=== PATIENT | male | born 1990 | race Caucasian/White ===

== ENCOUNTER 2017-08-18 15:32 | Emergency (ER) | payer MEDICARE, OTHER ==
[2017-08-18 15:51] VITALS: BP 128/68; PULSE 90; RESP 17; TEMP 98.1
--- NOTE | 2017-08-18 16:15 | XR ---
EXAMINATION TYPE: XR foot complete RT DATE OF EXAM: 08/18/2017 CLINICAL HISTORY: pain TECHNIQUE: Frontal, lateral and oblique images of the right foot are obtained. COMPARISON: None. FINDINGS: There is no acute fracture/dislocation evident. The joint spaces appear within normal juárez its. The overlying soft tissue appears unremarkable. IMPRESSION: There is no acute fracture or dislocation. ICD 10 NO FRACTURE, INITIAL EVALUATION
--- NOTE | 2017-08-18 16:18 | ED ---
Lower Extremity Injury HPI - General Chief Complaint: Extremity Injury, Lower Stated Complaint: foot pain Time Seen by Provider: 08/18/17 15:51 Source: patient, RN notes reviewed Mode of arrival: ambulatory Limitations: no limitations - History of Present Illness Initial Comments: This is a 26-year-old male who presents to the emergency department with chief complaint of right foot pain. Patient states on August 07 he did a lot of walking. He states that when he returned home that evening the lateral aspect of his right foot felt very sore. He states that since that time the pain has not improved. He denies any falls, specific injuries or trauma. Denies any other areas of pain. Denies fever, chills, chest pain, shortness of breath, abdominal pain, nausea or vomiting, constipation or diarrhea, dysuria or hematuria, numbness or tingling, headache or vision changes. - Related Data Previous Rx's Medication Instructions Recorded Ibuprofen [Motrin] 800 mg PO Q6HR PRN #30 tab 01/05/14 Allergies Allergy/AdvReac Type Severity Reaction Status Date / Time Sulfa (Sulfonamide Allergy Dyspnea Verified 08/18/17 15:57 Antibiotics) Review of Systems ROS Statement: Those systems with pertinent positive or pertinent negative responses have been documented in the HPI. ROS Other: All systems not noted in ROS Statement are negative. Past Medical History Past Medical History: No Reported History History of Any Multi-Drug Resistant Organisms: None Reported Additional Past Surgical History / Comment(s): eye surgery Past Psychological History: No Psychological Hx Reported Smoking Status: Current every day smoker Past Alcohol Use History: Occasional Past Drug Use History: Marijuana General Exam - General Exam Comments Initial Comments: General: Awake and alert, well-developed; in no apparent distress. HEENT: Head atraumatic, normocephalic. Pupils are equal, round and reactive to light. Extraocular movements intact. Oropharynx moist without erythema or exudate. Neck: Supple. Normal ROM. Cardiovascular: Regular rate and rhythm. No murmurs, rubs or gallops. Chest symmetrical. Respiratory: Lungs clear to auscultation bilaterally. No wheezes, rales or rhonchi. Normal respiratory effort with no use of accessory muscles. Musculoskeletal: Normal range of motion of the right ankle and foot. There is mild soft tissue swelling and mild tenderness lateral proximal right foot. Sensation is intact. Pedal pulses are 2+ equal and palpable bilaterally. Skin: [place], warm and dry without rashes or lesions. Neurological: Alert and oriented x3. CN II-XII grossly intact. Speech is fluent and answers are appropriate. No focal neuro deficits. Psychiatric: Normal mood and affect. No overt signs of depression or anxiety noted. Limitations: no limitations Course Vital Signs 08/18/17 15:47 Temperature 98.1 F Pulse Rate 90 Respiratory 17 Rate Blood Pressure 128/68 O2 Sat by Pulse 98 Oximetry Medical Decision Making - Medical Decision Making This is a 26-year-old male who presents to the emergency department with chief complaint of right foot pain. X-ray was obtained and revealed no acute abnormalities. Recommended rest, ice, elevation. Patient will be discharged home at this time. He is in agreement and voices understanding. All questions were answered. - Radiology Data Radiology results: report reviewed X-ray right foot impression: There is no acute fracture or dislocation. Disposition Clinical Impression: Foot pain, right Disposition: HOME SELF-CARE Condition: Good Instructions: Foot Sprain (ED) Additional Instructions: Please rest, ice, elevate and take ibuprofen or Tylenol as needed. Please follow up with primary care provider within 1-2 days. Return to emergency department if symptoms should worsen or any concerns arise. Is patient prescribed a controlled substance at d/c from ED?: No Referrals: Reagan Naik MD [Primary Care Provider] - 1-2 days Time of Disposition: 16:35
== END 2017-08-18 16:38 | disposition home or self-care (01) ==
LOC: EC 15:32
DX: M79.671 Pain in right foot (principal); F17.200 Nicotine dependence, unspecified, uncomplicated; Z88.2 Allergy status to sulfonamides
CPT/HCPCS: 99283

== ENCOUNTER 2017-11-06 14:59 | Inpatient (IN) | payer MEDICARE, OTHER ==
--- NOTE | 2017-11-06 16:57 | ED ---
General Adult HPI <Shahid Carl - Last Filed: 11/06/17 20:11> - General Source: patient, RN notes reviewed Mode of arrival: ambulatory Limitations: no limitations <Les Car - Last Filed: 11/07/17 00:26> - General Chief complaint: Back Pain/Injury Stated complaint: Back pain Time Seen by Provider: 11/06/17 16:11 - History of Present Illness Initial comments: 26-year-old male presents to the emergency department for a chief complaint of right upper back pain 2 days. Patient states he woke up with the pain yesterday. Patient states it radiates around his right side ribs. Patient denies any chest pain or shortness of breath. Patient admits to mild cough over the past few days. Patient denies any pain in the shoulder or neck. No headaches. Patient has not taken anything for pain. Patient has no other complaints at this time including abdominal pain, nausea or vomiting, headache, or visual changes. (Les Car) - Related Data Previous Rx's Medication Instructions Recorded Ibuprofen [Motrin] 800 mg PO Q6HR PRN #30 tab 01/05/14 Allergies Allergy/AdvReac Type Severity Reaction Status Date / Time Sulfa (Sulfonamide Allergy Dyspnea Verified 11/06/17 21:27 Antibiotics) Review of Systems ROS Other: All systems not noted in ROS Statement are negative. <Shahid Carl - Last Filed: 11/06/17 20:11> ROS Other: All systems not noted in ROS Statement are negative. <Les Car - Last Filed: 11/07/17 00:26> ROS Statement: Those systems with pertinent positive or pertinent negative responses have been documented in the HPI. Past Medical History Past Medical History: No Reported History History of Any Multi-Drug Resistant Organisms: None Reported Past Surgical History: No Surgical Hx Reported Additional Past Surgical History / Comment(s): eye surgery Past Psychological History: No Psychological Hx Reported Smoking Status: Current every day smoker Past Alcohol Use History: Occasional Past Drug Use History: Marijuana <Les Car - Last Filed: 11/07/17 00:26> General Exam Limitations: no limitations General appearance: alert, in no apparent distress Head exam: Present: atraumatic, normocephalic, normal inspection Eye exam: Present: normal appearance. Absent: scleral icterus, conjunctival injection ENT exam: Present: normal exam, mucous membranes moist Neck exam: Present: normal inspection, full ROM. Absent: tenderness, meningismus, lymphadenopathy Respiratory exam: Present: normal lung sounds bilaterally. Absent: respiratory distress, wheezes, rales, rhonchi, stridor Cardiovascular Exam: Present: regular rate, normal rhythm, normal heart sounds. Absent: systolic murmur, diastolic murmur, rubs, gallop, clicks Extremities exam: Present: full ROM (Full range of motion of right shoulder including flexion and abduction and extension. No pain with ROM. ), normal capillary refill (cap refill < 2 seconds, radial pulse 2+ in RUE.). Absent: tenderness (No tenderness to the right shoulder joint.), joint swelling (no swelling in shoulder or shoulder blade) Back exam: Present: full ROM (Full range of motion of lumbar spine including flexion and extension.), tenderness (Tenderness to trapezius muscle on the right side under the right scapula. ). Absent: CVA tenderness (R), CVA tenderness (L), vertebral tenderness (No cervical, thoracic, or lumbar spine tenderness) <Les Car P - Last Filed: 11/07/17 00:26> Vital Signs 11/06/17 11/06/17 11/06/17 15:31 18:29 19:32 Temperature 98.3 F 98.3 F Pulse Rate 59 L 65 57 L Respiratory 18 18 20 Rate Blood Pressure 123/77 132/89 130/74 O2 Sat by Pulse 100 100 99 Oximetry 11/06/17 11/06/17 11/06/17 19:33 20:28 21:32 Temperature 97.9 F Pulse Rate 50 L 54 L Respiratory 18 18 Rate Blood Pressure 121/76 141/94 O2 Sat by Pulse 100 100 100 Oximetry Medical Decision Making <Shahid Carl B - Last Filed: 11/06/17 20:11> - Lab Data Result diagrams: 11/06/17 20:23 11/06/17 20:23 <Les Car P - Last Filed: 11/07/17 00:26> - Medical Decision Making 26-year-old male presents to the emergency department for a chief complaint of right upper back pain 2 days. Patient woke up with the pain. It has been radiating around the right side of his upper ribs. No fevers or chills at home. Patient has had a slight cough. No blood coughed up. No shortness of breath or chest pain. On exam patient lungs are clear to auscultation bilaterally. Full range motion in the right shoulder. Patient has tenderness over trapezius muscle right side subscapular. X-ray shows an approximate 50% right pneumothorax. Left lung is clear. Heart and mediastinum are normal. The trachea is deviated a few millimeters to the left. No significant tension. Thoravent was applied by Dr Carl and patient admitted to hospital. (Les Car) Disposition Is patient prescribed a controlled substance at d/c from ED?: No <Shahid Carl - Last Filed: 11/06/17 20:11> <Les Car - Last Filed: 11/07/17 00:26> Clinical Impression: Spontaneous pneumothorax Disposition: ADMITTED IP TO THIS HOSP Condition: Good
--- NOTE | 2017-11-06 17:28 | XR ---
EXAMINATION TYPE: XR chest 2V DATE OF EXAM: 11/06/2017 COMPARISON: NONE HISTORY: Left side chest pain TECHNIQUE: Frontal and lateral views of the chest are obtained. FINDINGS: There is an approximate 50% right pneumothorax. The left lung is clear. Heart and mediasti num are normal. Bony thorax is intact. The trachea is deviated a few millimeters to the left side. IMPRESSION: Large right-sided pneumothorax. No significant tension. This exam was discussed with ER physician at 5:25 PM.
[2017-11-06] MEDS ORDERED: LIDOCAINE 1%-EPI 1:100,000 30 ML VIAL SQ STA (17:55)
[2017-11-06] MEDS ORDERED: LORazepam 1 MG TAB PO STA (18:19)
[2017-11-06] MEDS ORDERED: HYDROcodone/APAP 5-325MG 1 EACH TAB PO STA (18:20)
--- NOTE | 2017-11-06 20:06 | XR ---
EXAMINATION TYPE: XR chest 2V DATE OF EXAM: 11/06/2017 COMPARISON: Today HISTORY: Pneumothorax TECHNIQUE: Frontal and lateral views of the chest are obtained. FINDINGS: There is a right chest tube over the right upper lung field. There is decrease in the righ t-sided pneumothorax. Pneumothorax is approximately 25%. Left lung is clear. There is no pleural effu charles. There are chest leads. IMPRESSION: Decrease in the right pneumothorax.
[2017-11-06] MEDS ORDERED: SODIUM CHLORIDE 0.9% 1,000 ML IV ONE (20:09)
[2017-11-06] MEDS ORDERED: SODIUM CHLORIDE 0.9% 1,000 ML IV STA (20:11)
[2017-11-06 20:36] LABS: Basophils % (A) 0 %; Eosinophils # (A) 0.2 k/uL (0-0.7); Eosinophils % (A) 4 %; HCT 40.6 % (39.0-53.0); HGB 14.1 gm/dL (13.0-17.5); Lymphocytes # (A) 1.8 k/uL (1.0-4.8); Lymphocytes % (A) 29 %; MCH 31.1 pg (25.0-35.0); MCHC 34.7 g/dL (31.0-37.0); MCV 89.5 fL (80.0-100.0); Mean Platelet Volume 6.4; Monocytes # (A) 0.3 k/uL (0-1.0); Monocytes % (A) 5 %; Neutrophils # (A) 3.9 k/uL (1.3-7.7); Neutrophils % (A) 61 %; Platelet Count 243 k/uL (150-450); RBC 4.53 m/uL (4.30-5.90); RDW 13.1 % (11.5-15.5); WBC 6.5 k/uL (3.8-10.6)
[2017-11-06 20:40] LABS: ALT 47 U/L (21-72); AST 35 U/L (17-59); Albumin 4.5 g/dL (3.5-5.0); Alkaline Phosphatase 79 U/L (38-126); Anion Gap 10 mmol/L; Blood Urea Nitrogen 14 mg/dL (9-20); Calcium 8.7 mg/dL (8.4-10.2); Carbon Dioxide 24 mmol/L (22-30); Chloride 104 mmol/L (98-107); Glucose 101 mg/dL (74-99); Magnesium 2.5 mg/dL (1.6-2.3); Potassium 4.3 mmol/L (3.5-5.1); Sodium 138 mmol/L (137-145); Total Bilirubin 0.4 mg/dL (0.2-1.3); Total Protein 6.8 g/dL (6.3-8.2)
[2017-11-06 20:51] LABS: Partial Thromboplastin Time 26.6 sec (22.0-30.0); Prothrombin Time 10.1 sec (9.0-12.0)
[2017-11-06] MEDS ORDERED: HYDROcodone/APAP 5-325MG 1 EACH TAB PO PRN (21:30)
--- NOTE | 2017-11-07 11:16 | XR ---
EXAMINATION TYPE: XR chest 2V DATE OF EXAM: 11/07/2017 HISTORY: Pneumothorax. REFERENCE: Previous study dated 11/06/2017. FINDINGS: There is a Heimlich valve in place on the right. The patient's pneumothorax appears to have resolved. The lungs are now clear. Pleural space are clear. The heart is not enlarged. IMPRESSION: RESOLUTION OF THE PATIENT'S RIGHT-SIDED PNEUMOTHORAX.
--- NOTE | 2017-11-07 12:39 | P.CNPUL ---
History of Present Illness Consult date: 11/07/17 Reason for consult: dyspnea, cough, chest pain, pneumothorax, abnormal CXR/CT Chief complaint: Shortness of breath and right-sided chest pain History of present illness: Pulmonary consult dated 11/07/2017 26-year-old male who presents to the emergency department on November 06 for complaints of right lateral chest pain and right upper back pain. His been going on for a couple of days. In addition, he complains of some shortness of breath or difficulty breathing. He states that it was difficult for him to take a deep breath. The patient wasn't doing anything at all when this developed. He wasn't lifting anything or straining. The patient does have a history of heavy tobacco use. He is a thin male. He only uses Motrin when necessary for general aches and pains. His primary physician is Dr. Naik. States that he's feeling much better now. In the emergency room, the ER physician placed a Thoravent device. The patient smokes about a pack a day. He occasionally uses marijuana and does drink occasionally. No other illicit drug use. No other significant past medical surgery. Review of Systems A 12 point review of system is positive for chest and back pain. It was right sided. It began a couple days prior to admission. In addition, he admits to not being able to take a deep breath. He felt pain when he was trying to take a deep breath. Past Medical History Past Medical History: No Reported History Additional Past Medical History / Comment(s): migraines, edendulous History of Any Multi-Drug Resistant Organisms: None Reported Past Surgical History: No Surgical Hx Reported Additional Past Surgical History / Comment(s): eye surgery Past Anesthesia/Blood Transfusion Reactions: No Reported Reaction Past Psychological History: No Psychological Hx Reported Smoking Status: Current every day smoker Past Alcohol Use History: Occasional Past Drug Use History: Marijuana - Past Family History Mother Family Medical History: No Reported History Additional Family Medical History / Comment(s): colonoscopy, eye sx Father History Unknown: Yes Medications and Allergies Home Medications Medication Instructions Recorded Confirmed Type Ibuprofen [Motrin] 800 mg PO Q6HR PRN #30 tab 01/05/14 11/06/17 Rx Allergies Allergy/AdvReac Type Severity Reaction Status Date / Time Sulfa (Sulfonamide Allergy Dyspnea Verified 07/27/18 21:27 Antibiotics) Physical Exam Osteopathic Statement: *. No significant issues noted on an osteopathic structural exam other than those noted in the History and Physical/Consult. Vitals: Vital Signs Temp Pulse Pulse Resp BP BP Pulse Ox 11/07/17 08:00 98 F 66 18 124/57 100 11/06/17 23:00 97.8 F 53 L 16 125/86 100 11/06/17 21:32 97.9 F 54 L 18 141/94 100 11/06/17 20:28 50 L 18 121/76 100 11/06/17 19:33 100 11/06/17 19:32 98.3 F 57 L 20 130/74 99 11/06/17 18:29 65 18 132/89 100 11/06/17 15:31 98.3 F 59 L 18 123/77 100 Intake and Output 11/06/17 11/07/17 11/07/17 22:59 06:59 14:59 Intake Total 1200 Balance 1200 Intake: Intake, IV Titration 800 Amount Sodium Chloride 0.9% 1, 800 000 ml @ 100 mls/hr IV . Q10H STA Rx#:[id number] Oral 400 Other: Voiding Method Toilet # Voids 2 1 Weight 46.539 kg No acute distress, oriented 3. Nasal O2 in place. HEENT examination is grossly unremarkable. Mucous membranes are moist. No oral lesions. Neck supple. Full range of motion. No adenopathy thyromegaly or neck vein distention. Cardiovascular examination reveals regular rhythm rate. S1-S2 normal. No S3 or S4. No discernible murmur noted. Lungs reveal clear breath sounds. Breath sounds are equal bilaterally. No adventitious lung sounds including wheezes rhonchi or crackles. Abdomen soft bowel sounds are heard. No masses or tenderness. Extremities are intact. No cyanosis clubbing or edema. Skin is without rash or lesion. Neurologic examination is brief but nonfocal. Results - Laboratory Findings CBC and BMP: 11/06/17 20:23 11/06/17 20:23 PT/INR, D-dimer PT 10.1 sec (9.0-12.0) 11/06/17 20:23 INR 1.0 (<1.2) 11/06/17 20:23 Abnormal lab findings: Abnormal Labs 11/06/17 20:23 Creatinine 0.60 L Glucose 101 H Phosphorus 5.0 H Magnesium 2.5 H - Diagnostic Findings Chest x-ray: report reviewed (Labs x-rays and medications are all reviewed.), image reviewed Assessment and Plan Assessment: Idiopathic spontaneous right pneumothorax in a smoker, rule out apical bleb/ cyst disease History of chronic tobacco and marijuana use No significant past medical history Plan: Plan dated 11/07/2017 The right lung is fully expanded after the insertion of the floor of vent. The patient should be counseled about the importance of smoking cessation. Since this is his first pneumothorax, conservative therapy is all that is warranted. Should he have one or more episodes, consideration might be given to a VATS procedure with apical bleb resection and mechanical pleurodesis. Cardiothoracic has been consulted. No additional recommendations are made. The patient is counseled today about the importance of all smoking cessation. Time with Patient: Greater than 30
[2017-11-07 12:41] VITALS: BMI 17.0
--- NOTE | 2017-11-07 13:15 | P.GSCN ---
History of Present Illness Consult date: 11/07/17 Reason for Consult: Right-sided pneumothorax, status post thoravent insertion by the emergency room physicians. Requesting physician: Ananth Bangura History of present illness: This is a 26-year-old with thin young male patient of Dr. Naik. He has no significant past medical history except for tobacco dependence and marijuana use. He presented to the emergency room at [facility] complaints of right upper back pain, chest pain and shortness of breath for 2 days. Associated symptoms include nonproductive cough. Chest x-ray completed in the emergency room demonstrated 50% apical and lateral pneumothorax on the right. A thoravent was placed by the emergency room physicians with complete reexpansion on this morning's chest x-ray. He denied any trauma or any history of pneumothorax in the past. Consult request was placed for Dr. Meredith for management of the thoravent. Review of Systems Negative except as noted in the HPI. Past Medical History Past Medical History: No Reported History Additional Past Medical History / Comment(s): migraines, edendulous History of Any Multi-Drug Resistant Organisms: None Reported Past Surgical History: No Surgical Hx Reported Additional Past Surgical History / Comment(s): eye surgery Past Anesthesia/Blood Transfusion Reactions: No Reported Reaction Past Psychological History: No Psychological Hx Reported Smoking Status: Current every day smoker Past Alcohol Use History: Occasional Past Drug Use History: Marijuana - Past Family History Mother Family Medical History: No Reported History Additional Family Medical History / Comment(s): colonoscopy, eye sx Father History Unknown: Yes Medications and Allergies Home Medications Medication Instructions Recorded Confirmed Type Ibuprofen [Motrin] 800 mg PO Q6HR PRN #30 tab 01/05/14 11/06/17 Rx Allergies Allergy/AdvReac Type Severity Reaction Status Date / Time Sulfa (Sulfonamide Allergy Dyspnea Verified 11/06/17 21:27 Antibiotics) Surgical - Exam Vital Signs Temp Pulse Resp BP Pulse Ox 98.3 F 59 L 18 123/77 100 11/06/17 15:31 11/06/17 15:31 11/06/17 15:31 11/06/17 15:31 11/06/17 15:31 - General well developed, well nourished, no distress, no pain - Eyes PERRL, normal ocular movement - ENT no hearing loss - Neck no masses, no bruits, trachea midline - Respiratory Lungs sounds clear bilaterally. Respirations even, nonlabored. Currently on 2 L nasal cannula with oxygen saturation 100%. Thoravent present to right anterior chest wall, no air leak present. - Cardiovascular S1, S2 present. Regular rate and rhythm, sinus bradycardia to sinus rhythm on telemetry. - Abdomen Abdomen: soft, non tender, bowel sounds - Genitourinary Deferred - Rectum Deferred - Integumentary no rash, no growths, no abnormal pigmentation - Neurologic normal coordination, normal sensation - Musculoskeletal normal gait, normal posture - Psychiatric oriented to time, oriented to person, oriented to place, speech is normal, memory intact Results - Labs 11/06/17 20:23 11/06/17 20:23 Abnormal Lab Results - Last 24 Hours (Table) 11/06/17 Range/Units 20:23 Creatinine 0.60 L (0.66-1.25) mg/dL Glucose 101 H (74-99) mg/dL Phosphorus 5.0 H (2.5-4.5) mg/dL Magnesium 2.5 H (1.6-2.3) mg/dL Diabetes panel 11/06/17 Range/Units 20:23 Sodium 138 (137-145) mmol/L Potassium 4.3 (3.5-5.1) mmol/L Chloride 104 (98-107) mmol/L Carbon Dioxide 24 (22-30) mmol/L BUN 14 (9-20) mg/dL Creatinine 0.60 L (0.66-1.25) mg/dL Glucose 101 H (74-99) mg/dL Calcium 8.7 (8.4-10.2) mg/dL AST 35 (17-59) U/L ALT 47 (21-72) U/L Alkaline Phosphatase 79 (38-126) U/L Total Protein 6.8 (6.3-8.2) g/dL Albumin 4.5 (3.5-5.0) g/dL Calcium panel 11/06/17 Range/Units 20:23 Calcium 8.7 (8.4-10.2) mg/dL Phosphorus 5.0 H (2.5-4.5) mg/dL Albumin 4.5 (3.5-5.0) g/dL Pituitary panel 11/06/17 Range/Units 20:23 Sodium 138 (137-145) mmol/L Potassium 4.3 (3.5-5.1) mmol/L Chloride 104 (98-107) mmol/L Carbon Dioxide 24 (22-30) mmol/L BUN 14 (9-20) mg/dL Creatinine 0.60 L (0.66-1.25) mg/dL Glucose 101 H (74-99) mg/dL Calcium 8.7 (8.4-10.2) mg/dL Adrenal panel 11/06/17 Range/Units 20:23 Sodium 138 (137-145) mmol/L Potassium 4.3 (3.5-5.1) mmol/L Chloride 104 (98-107) mmol/L Carbon Dioxide 24 (22-30) mmol/L BUN 14 (9-20) mg/dL Creatinine 0.60 L (0.66-1.25) mg/dL Glucose 101 H (74-99) mg/dL Calcium 8.7 (8.4-10.2) mg/dL Total Bilirubin 0.4 (0.2-1.3) mg/dL AST 35 (17-59) U/L ALT 47 (21-72) U/L Alkaline Phosphatase 79 (38-126) U/L Total Protein 6.8 (6.3-8.2) g/dL Albumin 4.5 (3.5-5.0) g/dL - Imaging Chest x-ray: report reviewed, image reviewed Assessment and Plan (1) Tobacco dependence Current Visit: Yes Status: Chronic Code(s): F17.200 - NICOTINE DEPENDENCE, UNSPECIFIED, UNCOMPLICATED SNOMED Code(s): 93951278 (2) Marijuana use Current Visit: Yes Status: Chronic Code(s): F12.90 - CANNABIS USE, UNSPECIFIED, UNCOMPLICATED SNOMED Code(s): 122550009 (3) Spontaneous pneumothorax Current Visit: Yes Status: Acute Code(s): J93.83 - OTHER PNEUMOTHORAX SNOMED Code(s): 04754192 Plan: The patient was seen and examined at the bedside. Chart/diagnostics were reviewed. Since this is the patient's first incidence of spontaneous pneumothorax, we will monitor thoravent for air leak. Chest x-ray in the morning to determine if continued re-expansion of the right lung. If the lung remains re-expanded and there is no air leak the thoravent will be removed tomorrow. The patient was encouraged to quit smoking. Incentive spirometry ordered, patient should be encouraged to use IS 10 times every hour. The patient is at risk for future pneumothoraces. If he should develop a pneumothorax again in the future, he will be a candidate for surgical intervention. This was discussed with the patient and with Dr. Bangura. Medical management and pain control per primary care service. Thank you Dr. Bangura for this consult. We look forward to working with you in the care of your patient. Time with Patient: Greater than 30
[2017-11-07] MEDS ORDERED: ALPRAZolam 0.25 MG TAB PO PRN (13:46)
[2017-11-07] MEDS ORDERED: ACETAMINOPHEN TAB 500 MG TAB PO PRN (13:46)
--- NOTE | 2017-11-07 14:14 | HP ---
HISTORY AND PHYSICAL DATE OF SERVICE: 11/07/2017 CHIEF COMPLAINTS: Chest pain. HISTORY OF PRESENT ILLNESS: This 26-year-old gentleman with a past medical history of migraine otherwise no other significant medical history being followed by Dr. Naik in the outpatient setting was complaining of back pain for the last couple of days. The pain is below his right shoulder blade for the last 2 days, which is sharp in character. The patient woke up yesterday. The pain is radiating down and the patient came to [facility] and had 50% pneumothorax on the right side. The patient is given Thoravent insertion. Pneumothorax to 20%. Patient admitted to the hospital for further evaluation and treatment. There is no history of fever, rigors. No headache, loss of consciousness, seizures at this time. PAST MEDICAL HISTORY: History of migraine and edentulous. MEDICATIONS: Prior to admission include home medications are: Ibuprofen p.r.n. ALLERGIES: SULFA. FAMILY HISTORY: No history of heart disease or strokes in the family. SOCIAL HISTORY: History of THC, alcohol and smoking. REVIEW OF SYSTEMS: ENT: No diminished hearing or vision. CARDIOVASCULAR: No angina or palpitations. Respiratory: As mentioned earlier. GI: No nausea or vomiting. : No dysuria or hematuria. Central nervous system: No numbness or weakness. ALLERGY: No asthma or hayfever. Musculoskeletal: As mentioned earlier. HEMATOLOGY/ONCOLOGY: No history of diabetes or hypothyroidism. CONSTITUTIONAL: As mentioned earlier. Dermatology: Negative. Rheumatology: Negative. Psychiatry: As mentioned earlier. PHYSICAL EXAMINATION: The patient is alert and oriented x 3. Pulse 66, blood pressure 124/57, respiration 18, temperature 98 degrees. Pulse ox 100% on 2 L. HEENT is conjunctivae normal. Oral mucosa moist. Neck is no jugular venous distention. No carotid bruit. No lymph node enlargement. Cardiovascular system: S1, S2 muffled. Respiratory: Breath sounds diminished in the bases. A few rhonchi and crackles. Breath sounds diminished generally on the right side. ABDOMEN: Soft, nontender. No mass palpable. Legs: No edema and no swelling. Central nervous system: Higher functions as mentioned earlier. Moves all four extremities. No focal deficits. Lymphatics: No lymph nodes palpable in the neck, axillae or groin. Skin: No ulcer, rash or bleeding. External right chest Thoravent one-way valve present. LAB STUDIES: CBC within normal limits. Creatinine 0.6, glucose 101, magnesium 2.5. ASSESSMENT: 1. Right side pneumothorax status post Thoravent. 2. History of migraine. 3. History of nicotine dependence. 4. History of THC. RECOMMENDATIONS AND DISCUSSION: In this 26-year-old gentleman who presented with multiple medical issues, we will monitor the patient closely, continue the current medications, management and symptomatic treatment. We will monitor the patient closely, otherwise cardiothoracic surgery will be consulted. Pulmonary is also consulted and cardiothoracic surgery is planning repeat chest x-ray in case of full expansion being maintained tomorrow. Thoravent could be removed and patient could be sent home. Otherwise, continue to monitor. Prognosis guarded because of multiple complex medical issues. Further recommendations to follow. Discussed with the patient. A copy of this dictation being forwarded to Dr. Naik who is the primary physician. Smoking cessation advised. Habitrol patch, DVT prophylaxis and proton pump inhibitors. MMODL / IJN: [id number] /
[2017-11-07] MEDS: HEPARIN SODIUM,PORCINE 5,000 UNIT/ML 1 ML VIAL SQ SCH ×2 (15:57→21:02)
[2017-11-07] MEDS: NICOTINE 14MG/24HR PATCH TRANSDERM SCH (15:57)
[2017-11-07] MEDS ORDERED: TEMAZEPAM 15 MG CAP PO PRN (21:00)
[2017-11-07 23:03] VITALS: TEMP 97.6
[2017-11-08 05:39] VITALS: BP 115/62; PULSE 50; RESP 16
[2017-11-08] MEDS ORDERED: PANTOPRAZOLE 40 MG TABLET PO SCH (07:30)
[2017-11-08] MEDS: NICOTINE 14MG/24HR PATCH TRANSDERM SCH (08:05)
[2017-11-08] MEDS: HEPARIN SODIUM,PORCINE 5,000 UNIT/ML 1 ML VIAL SQ SCH (08:05)
--- NOTE | 2017-11-08 08:41 | XR ---
EXAMINATION TYPE: XR chest 2V DATE OF EXAM: 11/08/2017 HISTORY: Weakness. REFERENCE: Previous study dated 11/07/2017. FINDINGS: A Heimlich tube remains in place on the right. There is a tiny right apical pneumothorax. T he lungs are clear. The heart is not enlarged. IMPRESSION: TINY RESIDUAL APICAL PNEUMOTHORAX.
[2017-11-08 09:31] LABS: Basophils % (A) 1 %; Eosinophils # (A) 0.2 k/uL (0-0.7); Eosinophils % (A) 3 %; HCT 37.9 % (39.0-53.0); HGB 13.2 gm/dL (13.0-17.5); Lymphocytes # (A) 1.1 k/uL (1.0-4.8); Lymphocytes % (A) 25 %; MCH 31.4 pg (25.0-35.0); MCHC 34.8 g/dL (31.0-37.0); MCV 90.1 fL (80.0-100.0); Mean Platelet Volume 6.9; Monocytes # (A) 0.3 k/uL (0-1.0); Monocytes % (A) 7 %; Neutrophils # (A) 2.9 k/uL (1.3-7.7); Neutrophils % (A) 64 %; Platelet Count 202 k/uL (150-450); RBC 4.21 m/uL (4.30-5.90); RDW 13.1 % (11.5-15.5); WBC 4.6 k/uL (3.8-10.6)
--- NOTE | 2017-11-08 10:51 | P.PN ---
Subjective Progress Note Date: 11/08/17 Principal diagnosis: Spontaneous right-sided pneumothorax, first incident. Current medical history of tobacco dependence and marijuana use. Patient currently sitting up in bed in no acute distress. Denies pain, shortness of breath. No new issues. Objective - Vital Signs Vital signs: Vital Signs Temp 97.6 F 11/08/17 05:38 Pulse 50 L 11/08/17 05:38 Resp 16 11/08/17 05:38 BP 115/62 11/08/17 05:38 Pulse Ox 99 11/08/17 05:38 Intake & Output 11/07/17 11/08/17 11/08/17 18:59 06:59 18:59 Intake Total 3160 Balance 3160 Weight 46.539 kg Intake: Intake, IV Titration 1000 Amount Sodium Chloride 0.9% 1, 1000 000 ml @ 100 mls/hr IV . Q10H STA Rx#:[id number] Oral 2160 Other: Voiding Method Toilet Toilet # Voids 4 2 - Constitutional General appearance: Present: cooperative, no acute distress - Respiratory Details: Lungs sounds clear bilaterally. Respirations even, nonlabored. Currently on room air. Able to achieve 2000 mL on his incentive spirometry. Right-sided thoravent without any air leak. - Cardiovascular Details: S1, S2 present. Regular rate and rhythm, sinus rhythm on telemetry. Palpable peripheral pulses bilaterally. No edema present. No calf pain or tenderness noted. - Gastrointestinal Gastrointestinal Comment(s): Abdomen soft, nontender, nondistended. Active bowel sounds 4 quadrants. Tolerating diet. - Genitourinary Genitourinary Comment(s): Continues to void clear, yellow urine. - Integumentary Integumentary Comment(s): Skin is warm and dry with evidence of good perfusion. - Neurologic Neurologic: Present: CNII-XII intact - Musculoskeletal Musculoskeletal: Present: gait normal, strength equal bilaterally - Psychiatric Psychiatric: Present: A&O x's 3, appropriate affect, intact judgment & insight - Allied health notes Allied health notes reviewed: nursing - Labs CBC & Chem 7: 11/08/17 08:55 11/06/17 20:23 - Imaging and Cardiology Chest x-ray: report reviewed, image reviewed Assessment and Plan (1) Tobacco dependence Current Visit: Yes Status: Chronic Code(s): F17.200 - NICOTINE DEPENDENCE, UNSPECIFIED, UNCOMPLICATED SNOMED Code(s): 17352787 (2) Marijuana use Current Visit: Yes Status: Chronic Code(s): F12.90 - CANNABIS USE, UNSPECIFIED, UNCOMPLICATED SNOMED Code(s): 875599432 (3) Spontaneous pneumothorax Current Visit: Yes Status: Acute Code(s): J93.83 - OTHER PNEUMOTHORAX SNOMED Code(s): 44028578 Plan: The right-sided thoravent was discontinued and dressing placed. Will repeat an x-ray, as long as x-ray is stable the patient may be discharged to home from our standpoint when okay with primary care services. Patient has been counseled to quit smoking. Patient has also been informed that if he has a recurrence of pneumothorax he may need surgical intervention. Will call the mother and discussed the case with her. Medical management per primary care services. Time with Patient: Greater than 30
--- NOTE | 2017-11-08 11:47 | P.PN ---
Subjective Progress Note Date: 11/08/17 Principal diagnosis: Right pneumothorax Progress note dated 11/08/2017 This is a 26-year-old thin smoker who presented with a right-sided pneumothorax. A Thoraventthat was placed. The plan today was to remove the Thoravent if the chest x-ray looked okay. This morning's chest x-ray had a small right apical pneumothorax. The decision to remove the device will be made by thoracic surgery. Clinically the patient's doing well. He's feeling well. Denies any chest pain chest discomfort. Minimal shortness of breath. The patient has really no significant past medical history. Uses Motrin when necessary. No prior history of pneumothorax. We did auto club travel counselor him about the importance of smoking cessation in that it may lead to another pneumothorax down the road. Objective - Vital Signs Vital signs: Vital Signs Temp 97.6 F 11/08/17 05:38 Pulse 50 L 11/08/17 08:40 Resp 16 11/08/17 08:40 BP 115/62 11/08/17 05:38 Pulse Ox 99 11/08/17 05:38 Intake & Output 11/07/17 11/08/17 11/08/17 18:59 06:59 18:59 Intake Total 3160 Balance 3160 Weight 46.539 kg Intake: Intake, IV Titration 1000 Amount Sodium Chloride 0.9% 1, 1000 000 ml @ 100 mls/hr IV . Q10H STA Rx#:[id number] Oral 2160 Other: Voiding Method Toilet Toilet Toilet # Voids 4 2 3 - Exam No acute distress, oriented 3. Nasal O2 is in place. HEENT examination is grossly unremarkable. Mucous membranes are moist. No oral lesions. Neck supple. Full range of motion. No adenopathy thyromegaly or neck vein distention. Cardiovascular examination reveals regular rhythm rate. S1-S2 normal. No S3 or S4. No discernible murmur noted. Lungs reveal mostly clear breath sounds. A few scattered right-sided rhonchi are noted. No crackles or wheezes. Breath sounds are otherwise clear. Air exchange is reasonable. Abdomen soft bowel sounds are heard. No masses or tenderness. Extremities are intact. No cyanosis clubbing or edema. Skin is without rash or lesion. Neurologic examination is brief but nonfocal. - Labs CBC & Chem 7: 11/08/17 08:55 11/06/17 20:23 Labs: Abnormal Lab Results - Last 24 Hours (Table) 11/08/17 Range/Units 08:55 RBC 4.21 L (4.30-5.90) m/uL Hct 37.9 L (39.0-53.0) % Assessment and Plan Assessment: Idiopathic spontaneous right pneumothorax in a smoker, rule out apical bleb/ cyst disease History of chronic tobacco and marijuana use No significant past medical history Plan: Plan dated 11/07/2017 The right lung is fully expanded after the insertion of the floor of vent. The patient should be counseled about the importance of smoking cessation. Since this is his first pneumothorax, conservative therapy is all that is warranted. Should he have one or more episodes, consideration might be given to a VATS procedure with apical bleb resection and mechanical pleurodesis. Cardiothoracic has been consulted. No additional recommendations are made. The patient is counseled today about the importance of all smoking cessation. Plan dated 11/08/2017. The patient's morning chest x-ray showed a very tiny right apical pneumothorax. Cardiothoracic surgery will have to make a decision as to whether or not to remove the device. Clinically, he is feeling better. We did auto club travel counselor him about the importance of smoking cessation. He understands. He may have apical blebs and cyst which will cause recurrent pneumothorax. Certainly the smoking will increase the likelihood of having him having another event. We'll continue to follow. Time with Patient: Less than 30
--- NOTE | 2017-11-08 11:48 | XR ---
EXAMINATION TYPE: XR chest 2V DATE OF EXAM: 11/08/2017 HISTORY: post thoravent removal. REFERENCE: Previous study of earlier today. FINDINGS: The patient's Heimlich valve has been removed. There continues to be a tiny apical pneumoth orax. This is unchanged. The lungs are clear. Pleural space are clear. The heart is not enlarged.. IMPRESSION: TINY, RESIDUAL RIGHT APICAL PNEUMOTHORAX.
--- NOTE | 2017-11-08 21:06 | DS ---
DISCHARGE SUMMARY FINAL DIAGNOSES: 1. Right-sided pneumothorax status post Thoravent. 2. History of migraines. 3. History of nicotine dependence. 4. History of THC. DISCHARGE DISPOSITION: The patient is being discharged in stable condition with guarded prognosis. HISTORY OF PRESENT ILLNESS: This 26-year-old gentleman with a past medical history of multiple medical problems as mentioned earlier, is being followed by Dr. Naik in the outpatient setting, was admitted with right sided pneumothorax. Thoravent was inserted and subsequently evaluated by Dr. Roca and Cardiothoracic Surgery. After complete extraction, Thoravent was removed and the patient is being discharged in stable condition with guarded prognosis. On exam, vital signs are stable. Cardiovascular: S1, S2. Abdomen, soft, nontender. Respirations: Clear to auscultation. DISCHARGE ADVICE AND MEDICATIONS: 1. Discharged diet is cardiac diet. 2. Activity limited until follow up. 3. Follow with Dr. Naik in 1-2 days. 4. Follow up with cardiothoracic surgery as recommended. 5. P.r.n. medication Tylenol 500 mg q.6h p.r.n. 6. Motrin p.r.n. 7. Habitrol 14 daily. 8. No smoking. On again, the patient is being discharged in stable condition with guarded prognosis. MMODL / IJN: [id number] /
== END 2017-11-08 15:05 | disposition home or self-care (01) | DRG 201 ==
LOC: EC 14:59 → 5MS5E 20:09
PROVIDERS: ADMIT Hospitalist; ATTEND Hospitalist
PROC: 0W9930Z Drainage of Right Pleural Cavity with Drainage Device, Percutaneous Approach (ICD-10-PCS; principal; 2017-11-06)
DX: J93.83 Other pneumothorax (principal); F17.210 Nicotine dependence, cigarettes, uncomplicated; Z88.2 Allergy status to sulfonamides; F12.90 Cannabis use, unspecified, uncomplicated; Z71.6 Tobacco abuse counseling
CPT/HCPCS: 36415; 71046; 80053; 83735; 84100; 85025; 85610; 85730; 96360; 99284

== ENCOUNTER 2018-11-03 10:03 | Emergency (ER) | payer MEDICARE, OTHER ==
--- NOTE | 2018-11-03 10:36 | ED ---
Chest Pain HPI - General Chief Complaint: Chest Pain Stated Complaint: chest pain Time Seen by Provider: 11/03/18 10:26 Source: patient, RN notes reviewed Mode of arrival: ambulatory Limitations: no limitations - History of Present Illness Initial Comments: 27-year-old male presents emergency Department with chief complaint of chest discomfort. Patient states that he was riding his bike and states that he noticed he started having discomfort when he takes a deep inspiration or twists. Patient denies feeling short of breath. Patient does have a history of pneumothorax in the right side. Patient hasn't palpitations, fever, chills cough or chest congestion. Patient states he has no symptoms at rest. Patient states he was a former smoker. - Related Data Home Medications Medication Instructions Recorded Confirmed Albuterol Inhaler [Ventolin Hfa 1 - 2 puff INHALATION RT-Q6H PRN 11/03/18 11/03/18 Inhaler] Previous Rx's Medication Instructions Recorded Ibuprofen [Motrin] 600 mg PO Q8HR PRN #20 tab 11/03/18 Allergies Allergy/AdvReac Type Severity Reaction Status Date / Time Sulfa (Sulfonamide Allergy Dyspnea Verified 11/03/18 11:02 Antibiotics) Review of Systems ROS Statement: Those systems with pertinent positive or pertinent negative responses have been documented in the HPI. ROS Other: All systems not noted in ROS Statement are negative. EKG Findings - EKG Comments: EKG Findings:: EKG performed at 11:00 normal sinus rhythm rate of 64 RI interval 160 QRS 104 QT/QTC 386/[address] elevation or depression no inverted T waves Past Medical History Past Medical History: No Reported History Additional Past Medical History / Comment(s): migraines, edendulous History of Any Multi-Drug Resistant Organisms: None Reported Past Surgical History: No Surgical Hx Reported Additional Past Surgical History / Comment(s): eye surgery Past Anesthesia/Blood Transfusion Reactions: No Reported Reaction Past Psychological History: No Psychological Hx Reported Smoking Status: Former smoker Past Alcohol Use History: Occasional Past Drug Use History: Marijuana - Past Family History Mother Family Medical History: No Reported History Additional Family Medical History / Comment(s): colonoscopy, eye sx Father History Unknown: Yes General Exam Limitations: no limitations General appearance: alert, in no apparent distress Head exam: Present: atraumatic, normocephalic, normal inspection Eye exam: Present: normal appearance, PERRL, EOMI. Absent: scleral icterus, conjunctival injection, periorbital swelling ENT exam: Present: normal exam, normal oropharynx, mucous membranes moist Neck exam: Present: normal inspection, full ROM. Absent: tenderness, meningismus, lymphadenopathy Respiratory exam: Present: normal lung sounds bilaterally, chest wall tenderness. Absent: respiratory distress, wheezes, rales, rhonchi, stridor Cardiovascular Exam: Present: regular rate, normal rhythm, normal heart sounds. Absent: systolic murmur, diastolic murmur, rubs, gallop, clicks GI/Abdominal exam: Present: soft, normal bowel sounds. Absent: distended, tenderness, guarding, rebound, rigid Course Vital Signs 11/03/18 10:22 Temperature 97.9 F Pulse Rate 67 Respiratory 18 Rate Blood Pressure 159/80 O2 Sat by Pulse 98 Oximetry Chest Pain MDM - MDM 27-year-old male presented for chest pain. This is reproducible chest wall pain. Most likely related to costochondritis. Patient's pain is worse with deep inspiration we discussed possibility of pleurisy. Patient had x-ray to rule out pneumothorax as he has a history. This was negative. EKG was obtained which shows normal sinus rhythm. Patient discharged with anti-inflammatories return parameters were discussed. Vitals are stable. Disposition Clinical Impression: Chest pain, Costochondritis, acute Disposition: HOME SELF-CARE Condition: Stable Instructions (If sedation given, give patient instructions): Costochondritis (ED), Chest Pain (ED) Additional Instructions: Please return to the Emergency Department if symptoms worsen or any other concer ns. Prescriptions: Ibuprofen [Motrin] 600 mg PO Q8HR PRN #20 tab PRN Reason: Pain Is patient prescribed a controlled substance at d/c from ED?: No Referrals: Reagan Naik MD [Primary Care Provider] - 1-2 days Time of Disposition: 11:52
--- NOTE | 2018-11-03 11:24 | XR ---
EXAMINATION TYPE: XR chest 2V DATE OF EXAM: 11/03/2018 COMPARISON: Chest x-ray November 08, 2017 HISTORY: Cough and pain. Chest pain into left shoulder. TECHNIQUE: Frontal and lateral views of the chest are obtained. FINDINGS: Mild right apical pleural/parenchymal scarring redemonstrated. There is no focal air space opacity, pleural effusion, or pneumothorax seen currently. The cardiac silhouette size is within no rmal limits. The osseous structures are intact. IMPRESSION: No acute cardiopulmonary process on current study.
[2018-11-03 12:08] VITALS: BP 122/82; PULSE 63; RESP 16; TEMP 98
== END 2018-11-03 12:18 | disposition home or self-care (01) ==
LOC: EC 10:03
DX: M94.0 Chondrocostal junction syndrome [Tietze] (principal); Z86.69 Personal history of other diseases of the nervous system and sense organs; Z87.891 Personal history of nicotine dependence; Z98.890 Other specified postprocedural states; Z88.2 Allergy status to sulfonamides
CPT/HCPCS: 71046; 93005; 99285

== ENCOUNTER 2018-11-23 07:41 | Emergency (ER) | payer MEDICARE, OTHER ==
[2018-11-23 07:48] VITALS: BP 128/86; PULSE 95; RESP 18; TEMP 97.6
[2018-11-23] MEDS ORDERED: CYCLOBENZAPRINE 10MG STARTER 3 TAB BTL PO STA (08:09)
[2018-11-23] MEDS ORDERED: KETOROLAC 30 MG/ML 1 ML VIAL IM STA (08:09)
--- NOTE | 2018-11-23 08:13 | ED ---
General Adult HPI - General Chief complaint: Recheck/Abnormal Lab/Rx Stated complaint: Arm/Leg/Back Pain Time Seen by Provider: 11/23/18 07:51 Source: patient, RN notes reviewed, old records reviewed Mode of arrival: ambulatory Limitations: no limitations - History of Present Illness Initial comments: This Patient is a 28-year-old male with history of mental delay. He presents today with complaints of generalized body aches, some back discomfort rib discomfort after doing a lot of strenuous lifting over the weekend. Patient reports he was moving equipment for camping up the large toe. Patient reports that he took some I Profen for his pain but states that it seems like it wasn't helping. Patient states that his pain is seemed to be worse with movements. He complains of pain mostly with them and the rib the lower back area. - Related Data Home Medications Medication Instructions Recorded Confirmed Albuterol Inhaler [Ventolin Hfa 1 - 2 puff INHALATION RT-Q6H PRN 11/03/18 11/23/18 Inhaler] Previous Rx's Medication Instructions Recorded Ibuprofen [Motrin] 600 mg PO Q8HR PRN #20 tab 11/03/18 Ibuprofen 600 mg PO TID #20 tablet 11/23/18 Allergies Allergy/AdvReac Type Severity Reaction Status Date / Time Sulfa (Sulfonamide Allergy Dyspnea Verified 11/23/18 07:59 Antibiotics) Review of Systems ROS Statement: Those systems with pertinent positive or pertinent negative responses have been documented in the HPI. ROS Other: All systems not noted in ROS Statement are negative. Past Medical History Past Medical History: No Reported History Additional Past Medical History / Comment(s): migraines, edendulous History of Any Multi-Drug Resistant Organisms: None Reported Past Surgical History: No Surgical Hx Reported Additional Past Surgical History / Comment(s): eye surgery Past Anesthesia/Blood Transfusion Reactions: No Reported Reaction Past Psychological History: No Psychological Hx Reported Smoking Status: Former smoker Past Alcohol Use History: Occasional, Rare Past Drug Use History: Marijuana - Past Family History Mother Family Medical History: No Reported History Additional Family Medical History / Comment(s): colonoscopy, eye sx Father History Unknown: Yes General Exam - General Exam Comments Initial Comments: 28-year-old male. Limitations: no limitations General appearance: alert, in no apparent distress Head exam: Present: atraumatic, normocephalic, normal inspection Eye exam: Present: normal appearance, PERRL, EOMI. Absent: scleral icterus, conjunctival injection, periorbital swelling ENT exam: Present: normal exam, mucous membranes moist Neck exam: Present: normal inspection. Absent: tenderness, meningismus, lymphadenopathy Respiratory exam: Present: normal lung sounds bilaterally. Absent: respiratory distress, wheezes, rales, rhonchi, stridor Cardiovascular Exam: Present: regular rate, normal rhythm, normal heart sounds. Absent: systolic murmur, diastolic murmur, rubs, gallop, clicks GI/Abdominal exam: Present: soft, normal bowel sounds. Absent: distended, tenderness, guarding, rebound, rigid Extremities exam: Present: normal inspection, full ROM, normal capillary refill. Absent: tenderness, pedal edema, joint swelling, calf tenderness Back exam: Present: normal inspection Neurological exam: Present: alert, oriented X3, CN II-XII intact Psychiatric exam: Present: normal affect, normal mood Skin exam: Present: warm, dry, intact, normal color. Absent: rash Course Vital Signs 11/23/18 07:44 Temperature 97.6 F Pulse Rate 95 Respiratory 18 Rate Blood Pressure 128/86 O2 Sat by Pulse 97 Oximetry Medical Decision Making - Medical Decision Making 28-year-old male presents today with generalized muscle aches, complaining of similar back pain, and right-sided rib pain. Denies any change in urination or bowel habits. He is worse with movement. Patient given by mouth muscle relaxer and a temperature medicine IM Toradol. Patient's chest x-ray was returned normal. Patient feels better after IM medication. Discussed that seemed also skeletal pulled muscle after strenuous activity yesterday. Discussed taking anti-inflammatory medicine and close follow-up with PCP. Questions were answered return parameters were discussed. Disposition Clinical Impression: Strain of muscle, fascia and tendon of lower back, initial encounter, Rib pain on right side Disposition: HOME SELF-CARE Condition: Good Instructions (If sedation given, give patient instructions): Costochondritis (ED) Additional Instructions: Patient advised to take Motrin Tylenol for pain. Follow up with your primary care physician. Limited activity and apply warm compresses over the area. Prescriptions: Ibuprofen 600 mg PO TID #20 tablet Is patient prescribed a controlled substance at d/c from ED?: No Referrals: Reagan Naik MD [Primary Care Provider] - 1-2 days Time of Disposition: 08:43
--- NOTE | 2018-11-23 08:26 | XR ---
EXAMINATION TYPE: XR chest 2V DATE OF EXAM: 11/23/2018 COMPARISON: Prior chest x-ray 11/03/2018 HISTORY: Chest pain TECHNIQUE: Frontal and lateral views of the chest are obtained. FINDINGS: There is no focal air space opacity, pleural effusion, or pneumothorax seen. The cardiac silhouette size is within normal limits. Biapical pleural scarring is stable. The osseous structures are intact. IMPRESSION: No acute cardiopulmonary process.
== END 2018-11-23 08:48 | disposition home or self-care (01) ==
LOC: EC 07:41
DX: S39.012A Strain of muscle, fascia and tendon of lower back, initial encounter (principal); R07.81 Pleurodynia; Z87.891 Personal history of nicotine dependence; Z88.2 Allergy status to sulfonamides; X50.0XXA Overexertion from strenuous movement or load, initial encounter
CPT/HCPCS: 71046; 99284; 96372; J1885

== ENCOUNTER 2019-01-06 20:13 | Emergency (ER) | payer MEDICARE, OTHER ==
[2019-01-06 20:20] VITALS: BP 126/89; PULSE 90; RESP 20; TEMP 97.5
--- NOTE | 2019-01-06 21:14 | XR ---
EXAMINATION TYPE: XR hand complete RT DATE OF EXAM: 01/06/2019 COMPARISON: NONE HISTORY: Pain TECHNIQUE: 3 views FINDINGS: Metacarpals are intact. I see no fracture nor dislocation. There are no erosions. Joint [facility] [place] are normal. IMPRESSION: Negative right hand exam.
--- NOTE | 2019-01-06 21:15 | XR ---
EXAMINATION TYPE: XR wrist complete RT DATE OF EXAM: 01/06/2019 COMPARISON: NONE HISTORY: Pain TECHNIQUE: 4 views FINDINGS: Carpal bones are intact. I see no fracture nor dislocation. Joint spaces are normal. IMPRESSION: Negative right wrist exam.
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
== END 2019-01-06 22:11 | disposition home or self-care (01) ==
LOC: EC 20:13
DX: S63.91XA Sprain of unspecified part of right wrist and hand, initial encounter (principal); Z88.2 Allergy status to sulfonamides; Z87.891 Personal history of nicotine dependence; V19.9XXA Pedal cyclist (driver) (passenger) injured in unspecified traffic accident, initial encounter
CPT/HCPCS: 29125; 99283

== ENCOUNTER 2022-07-20 14:26 | Emergency (ER) | payer MEDICARE ==
[2022-07-20 14:32] VITALS: TEMP 98.6
[2022-07-20] MEDS ORDERED: LIDOCAINE 5% PATCH TOPICAL STA (14:47)
[2022-07-20] MEDS ORDERED: SODIUM CHLORIDE 0.9% 1,000 ML IV STA (14:47)
[2022-07-20] MEDS ORDERED: KETOROLAC 15 MG/ML 1 ML VIAL IVP STA (14:47)
[2022-07-20 15:03] LABS: Basophils % (A) 0 %; Eosinophils % (A) 0 %; HCT 35.9 % (39.0-53.0); HGB 12.6 gm/dL (13.0-17.5); Hyperchromasia Slight; Lymphocytes # (A) 1.3 k/uL (1.0-4.8); Lymphocytes % (A) 10 %; MCH 30.1 pg (25.0-35.0); MCHC 35.1 g/dL (31.0-37.0); MCV 85.7 fL (80.0-100.0); Mean Platelet Volume 6.6; Monocytes # (A) 0.6 k/uL (0-1.0); Monocytes % (A) 4 %; Neutrophils # (A) 11.4 k/uL (1.3-7.7); Neutrophils % (A) 84 %; Platelet Count 600 k/uL (150-450); Poikilocytosis Slight; RBC 4.18 m/uL (4.30-5.90); RDW 12.1 % (11.5-15.5); WBC 13.5 k/uL (3.8-10.6)
[2022-07-20 15:17] LABS: ALT 18 U/L (4-49); AST 20 U/L (17-59); African American GFR (CKD) >90 (>60 ml/min/1.73 sqM); Albumin 3.8 g/dL (3.5-5.0); Alkaline Phosphatase 95 U/L (38-126); Anion Gap 8 mmol/L; Blood Urea Nitrogen 7 mg/dL (9-20); Calcium 8.1 mg/dL (8.4-10.2); Carbon Dioxide 32 mmol/L (22-30); Chloride 98 mmol/L (98-107); Glucose 108 mg/dL (74-99); Lipase 26 U/L (23-300); Non-African American GFR(CKD) >90 (>60 ml/min/1.73 sqM); Potassium 3.8 mmol/L (3.5-5.1); Sodium 138 mmol/L (137-145); Total Bilirubin 0.5 mg/dL (0.2-1.3); Total Protein 6.8 g/dL (6.3-8.2)
--- NOTE | 2022-07-20 15:58 | ED ---
Back Pain HPI - General Source: patient <Isra Callesna - Last Filed: 07/20/22 19:17> <Radha Whitlock - Last Filed: 07/21/22 00:31> - General Chief Complaint: Back Pain/Injury Stated Complaint: Back pain, Abd pain Time Seen by Provider: 07/20/22 14:38 - History of Present Illness Initial Comments: Patient is a 31-year-old male who presents to the emergency department with multiple complaints. Patient complains of intermittent back and abdominal pain for the past 3 weeks. He denies any recent injury or falls. Theback pain is sometimes independent of the abdominal pain. It is in the left lower back. There is no numbness and tingling, leg weakness. No loss of bowel or bladder function. The abdominal pain is mild in the periumbilcal region. It not assoc iated with any fever, chills, nausea, vomiting. Patient does admit to burning with urination he does have history of urinary tract infection. He denies blood in urine. Denies history of kidney infection and stone. (Marquita Calles) - Related Data Previous Rx's Medication Instructions Recorded Ciprofloxacin HCl [Cipro] 500 mg PO Q12HR #28 tablet 07/20/22 Allergies Allergy/AdvReac Type Severity Reaction Status Date / Time Sulfa (Sulfonamide Allergy Dyspnea Verified 07/20/22 15:11 Antibiotics) sulfamethoxazole Allergy Dyspnea Verified 07/20/22 15:11 [From Bactrim] trimethoprim [From Bactrim] Allergy Dyspnea Verified 07/20/22 15:11 Review of Systems ROS Other: All systems not noted in ROS Statement are negative. <Marquita Calles - Last Filed: 07/20/22 19:17> ROS Other: All systems not noted in ROS Statement are negative. <Radha Whitlock - Last Filed: 07/21/22 00:31> ROS Statement: Those systems with pertinent positive or pertinent negative responses have been documented in the HPI. Past Medical History Past Medical History: No Reported History Additional Past Medical History / Comment(s): migraines, edendulous History of Any Multi-Drug Resistant Organisms: None Reported Past Surgical History: No Surgical Hx Reported Additional Past Surgical History / Comment(s): eye surgery Past Anesthesia/Blood Transfusion Reactions: No Reported Reaction Past Psychological History: No Psychological Hx Reported Past Alcohol Use History: Occasional, Rare Past Drug Use History: Marijuana - Past Family History Mother Family Medical History: No Reported History Additional Family Medical History / Comment(s): colonoscopy, eye sx Father History Unknown: Yes <Marquita Calles - Last Filed: 07/20/22 19:17> General Exam General appearance: alert, in no apparent distress Head exam: Present: atraumatic, normocephalic, normal inspection Eye exam: Present: normal appearance, PERRL, EOMI. Absent: scleral icterus, conjunctival injection, periorbital swelling ENT exam: Present: normal exam, mucous membranes moist Respiratory exam: Present: normal lung sounds bilaterally. Absent: respiratory distress, wheezes, rales, rhonchi, stridor Cardiovascular Exam: Present: regular rate, normal rhythm, normal heart sounds. Absent: systolic murmur, diastolic murmur, rubs, gallop, clicks GI/Abdominal exam: Present: soft, normal bowel sounds. Absent: distended, tenderness, guarding, rebound, rigid exam: Present: normal inspection, urethral discharge, circumcision. Absent: testicular tenderness, scrotal swelling External exam: Present: normal external exam Extremities exam: Present: normal inspection Back exam: Present: normal inspection, full ROM. Absent: CVA tenderness (R), CVA tenderness (L), paraspinal tenderness, vertebral tenderness Neurological exam: Present: alert, oriented X3, CN II-XII intact Psychiatric exam: Present: normal affect, normal mood Skin exam: Present: warm, dry, intact, normal color. Absent: rash <Marquita Calles - Last Filed: 07/20/22 19:17> Course Vital Signs 07/20/22 07/20/22 07/20/22 14:29 16:22 19:07 Temperature 98.6 F Pulse Rate 103 H 81 82 Respiratory 16 18 18 Rate Blood Pressure 153/92 126/91 134/84 O2 Sat by Pulse 100 99 96 Oximetry Medical Decision Making - Lab Data Result diagrams: 07/20/22 14:48 07/20/22 14:48 <Marquita Calles - Last Filed: 07/20/22 19:17> - Lab Data Result diagrams: 07/20/22 14:48 07/20/22 14:48 <Radha Whitlock Last Filed: 07/21/22 00:31> - Medical Decision Making Was pt. sent in by a medical professional or institution (, [facility], POLYMERIZATION HELPER, urgent care, hospital, or usp...) When possible be specific @ -No Did you speak to anyone other than the patient for history (EMS, parent, family, police, friend...)? What history was obtained from this source @ -No Did you review nursing and triage notes (agree or disagree)? Why? @ -I reviewed and agree with nursing and triage notes Were old charts reviewed (outside hosp., previous admission, EMS record, old EKG, old radiological studies, urgent care reports/EKG's, usp records)? Report findings @ -No old charts were reviewed Differential Diagnosis (chest pain, altered mental status, abdominal pain women, abdominal pain men, vaginal bleeding, weakness, fever, dyspnea, syncope, headache, dizziness, GI bleed, back pain, seizure, CVA, palpatations, mental health)? @ -Differential Abdominal Pain Men: Appendicitis, cholecystitis, diverticulosis, ischemic bowel, pancreatitis, hepatitis, UTI, pyelonephritis, gastroenteritis, AAA, incarcerated hernia, bowel obstruction, constipation, inflammatory bowel, hepatitis, peptic ulcer disease, splenic infarction, perforated viscus, testicular torsion, this is not meant to be an all-inclusive list EKG interpreted by me (3pts min.). @ -As above X-rays interpreted by me (1pt min.). @ -None done CT interpreted by me (1pt min.). @ -Yes, CT concern for pyelonephritis U/S interpreted by me (1pt. min.). @ -None done What testing was considered but not performed or refused? (CT, X-rays, U/S, labs)? Why? @ -None What meds were considered but not given or refused? Why? @ -None Did you discuss the management of the patient with other professionals (professionals i.e. IRIS Casillas, POLYMERIZATION HELPER, lab, RT, psych nurse, social professionals, terrazzo tile setter, teacher, medical officer, case finisher)? Give summary @ -No Was smoking cessation discussed for >3mins.? @ -No Was critical care preformed (if so, how long)? @ -No Were there social determinants of health that impacted care today? How? (Homelessness, low income, unemployed, alcoholism, drug addiction, transportation, low edu. Level, literacy, decrease access to med. care, custodial, rehab)? @ -No Was there de-escalation of care discussed even if they declined (Discuss DNR or withdrawal of care, Hospice)? DNR status @ -No What co-morbidities impacted this encounter? (DM, HTN, Smoking, COPD, CAD, Cancer, CVA, ARF, Chemo, Hep., AIDS, mental health diagnosis, sleep apnea, morbid obesity)? @ -None Was patient admitted / discharged? Hospital course, mention meds given and route, prescriptions, significant lab abnormalities, going to OR and other perti nent info. @ -Patient presenting with middle abdominal and left back pain. The abdomen is soft and nontender. There is no vertebral, paravertebral, or CVA tenderness. No fever, nausea, vomiting. Laboratory studies obtained. Urinalysis reveals significant infection. There is mild leukocytosis at 13.5. Platelets elevated at 600, suspect related to infectious etiology. CT shows striated nephrogram bilaterally with mild hydronephrosis and distended urinary bladder with ur othelial prominence concerning for pyelonephritis. Patient given IV Levaquin and fluid bolus. Results discussed with patient. Patient is circumcised, he is not sexually active. Etiology is unclear but possibly related to hygiene. We discussed this in detail. Patient is well- appearing, no fever, no vomiting, nontender abdomen. He is in stable medical condition for discharge with ciprofloxacin. She didn't return parameters discussed. Undiagnosed new problem with uncertain prognosis? @ -No Drug Therapy requiring intensive monitoring for toxicity (Heparin, Nitro, Insulin, Cardizem)? @ -[No] Were any procedures done? @ -[No] Diagnosis/symptom? @ -Pyelonephritis Acute, or Chronic, or Acute on Chronic? @ -Acute Uncomplicated (without systemic symptoms) or Complicated (systemic symptoms)? @ Uncomplicated Side effects of treatment? @ -[No] Exacerbation, Progression, or Severe Exacerbation? @ -[No] Poses a threat to life or bodily function? How? (Chest pain, [place], [place], pneumonia, PE, COPD, DKA, ARF, appy, cholecystitis, CVA, Diverticulitis, Homicidal, Suicidal, threat to staff... and all critical care pts) @ -[No] Dr. Whitlock is my attending (Marquita Calles) Strict return parameters were discussed with the patient (Radha Whitlock) - Lab Data Lab Results 07/20/22 07/20/22 07/20/22 Range/Units 14:48 14:48 16:23 WBC 13.5 H (3.8-10.6) k/uL RBC 4.18 L (4.30-5.90) m/uL Hgb 12.6 L (13.0-17.5) gm/dL Hct 35.9 L (39.0-53.0) % MCV 85.7 (80.0-100.0) fL MCH 30.1 (25.0-35.0) pg MCHC 35.1 (31.0-37.0) g/dL RDW 12.1 (11.5-15.5) % Plt Count 600 H (150-450) k/uL MPV 6.6 Neutrophils % 84 % Lymphocytes % 10 % Monocytes % 4 % Eosinophils % 0 % Basophils % 0 % Neutrophils # 11.4 H (1.3-7.7) k/uL Lymphocytes # 1.3 (1.0-4.8) k/uL Monocytes # 0.6 (0-1.0) k/uL Eosinophils # 0.0 (0-0.7) k/uL Basophils # 0.0 (0-0.2) k/uL Hyperchromasia Slight Poikilocytosis Slight Sodium 138 (137-145) mmol/L Potassium 3.8 (3.5-5.1) mmol/L Chloride 98 (98-107) mmol/L Carbon Dioxide 32 H (22-30) mmol/L Anion Gap 8 mmol/L BUN 7 L (9-20) mg/dL Creatinine 0.78 (0.66-1.25) mg/dL Est GFR (CKD-EPI)AfAm >90 (>60 ml/min/1.73 sqM) Est GFR (CKD-EPI)NonAf >90 (>60 ml/min/1.73 sqM) Glucose 108 H (74-99) mg/dL Calcium 8.1 L (8.4-10.2) mg/dL Total Bilirubin 0.5 (0.2-1.3) mg/dL AST 20 (17-59) U/L ALT 18 (4-49) U/L Alkaline Phosphatase 95 (38-126) U/L Total Protein 6.8 (6.3-8.2) g/dL Albumin 3.8 (3.5-5.0) g/dL Lipase 26 (23-300) U/L Urine Color Light Yellow Urine Appearance Cloudy (Clear) Urine pH 6.0 (5.0-8.0) Ur Specific Reserve 1.007 (1.001-1.035) Urine Protein Trace H (Negative) Urine Glucose (UA) Negative (Negative) Urine Ketones Negative (Negative) Urine Blood Small H (Negative) Urine Nitrite Negative (Negative) Urine Bilirubin Negative (Negative) Urine Urobilinogen <2.0 (<2.0) mg/dL Ur Leukocyte Esterase Large H (Negative) Urine RBC 3 (0-5) /hpf Urine WBC >182 H (0-5) /hpf Urine WBC Clumps Many H (None) /hpf Urine Bacteria Many H (None) /hpf Urine Mucus Rare H (None) /hpf Disposition Is patient prescribed a controlled substance at d/c from ED?: No <Marquita Calles - Last Filed: 07/20/22 19:17> <Radha Whitlock - Last Filed: 07/21/22 00:31> Clinical Impression: Pyelonephritis Disposition: HOME SELF-CARE Condition: Stable Instructions (If sedation given, give patient instructions): Kidney Infection (ED) Additional Instructions: Take medication as directed. It is important to drink lots of water and change underwear daily. Follow up with primary care provider in one to 2 days. Return to emergency department if you experience new, concerning, or worsening symptoms. Prescriptions: Ciprofloxacin HCl [Cipro] 500 mg PO Q12HR #28 tablet Referrals: None,Stated [Primary Care Provider] - 1-2 days
[2022-07-20 16:23] VITALS: RESP 18
--- NOTE | 2022-07-20 16:34 | CT ---
EXAMINATION TYPE: CT abdomen pelvis w con CT DLP: 444.7 mGycm, Automated exposure control for dose reduction was used. DATE OF EXAM: 07/20/2022 4:14 PM COMPARISON: None CLINICAL INDICATION:Male, 31 years old with history of middle abdominal pain; Abdominal and back pain . TECHNIQUE: Axial CT of the abdomen and pelvis. Sagittal and coronal reformats were created on a ROI² workstation. Contrast used:100 mL of Isovue 300 with IV Contrast, Oral contrast used: without Oral Contrast FINDINGS: LOWER CHEST: Unremarkable ABDOMEN LIVER: Unremarkable GALLBLADDER AND BILE DUCTS: Unremarkable. PANCREAS: Unremarkable. SPLEEN: Unremarkable. ADRENAL GLANDS: Unremarkable. KIDNEYS AND URETERS: Bilateral striated nephrograms. There is thickened urothelium of the collecting systems left greater than right noted. Mild hydronephrosis. No evidence of hydronephrosis or renal ca lculus. The ureters are somewhat distended bilaterally. No obstructing calculus identified. PELVIS BLADDER: Urinary bladder is distended. REPRODUCTIVE: Unremarkable. ABDOMEN & PELVIS STOMACH AND BOWEL: No evidence of bowel obstruction. PERITONEUM/RETROPERITONEUM: No evidence of pneumoperitoneum or free fluid. VASCULATURE: No evidence of aortic aneurysm. MUSCULOSKELETAL: No acute osseous abnormalities LYMPH NODES: No gross evidence for lymphadenopathy. SOFT TISSUE/ABDOMINAL WALL: Unremarkable IMPRESSION: 1. Striated nephrogram bilaterally with mild hydronephrosis and distended urinary bladder with uroth elial prominence correlate for ascending infection such a pyelonephritis. No renal calculi identified . 2. Normal appendix.
[2022-07-20 17:22] LABS: Appearance,Urine Cloudy (Clear); Bacteria,Urine Many /hpf; Bilirubin,Urine Negative (Negative); Blood,Urine Small (Negative); Color,Urine Light Yellow; Glucose,Urine (UA) Negative (Negative); Ketones,Urine Negative (Negative); Leukocyte Esterase,Urine Large (Negative); Mucus,Urine Rare /hpf; Nitrite,Urine Negative (Negative); Protein,Urine Trace (Negative); RBC,Urine 3 /hpf (0-5); Specific Gravity,Urine 1.007 (1.001-1.035); Urobilinogen,Urine <2.0 mg/dL (<2.0); WBC,Urine >182 /hpf (0-5)
[2022-07-20] MEDS ORDERED: LEVOFLOXACIN 500MG-D5W PMX 500 MG in DEXTROSE/WATER 1 100ML.BAG IVPB STA (17:41)
[2022-07-20 19:11] VITALS: BP 134/84; PULSE 82
== END 2022-07-20 19:11 | disposition home or self-care (01) ==
LOC: EC 14:26
DX: N12 Tubulo-interstitial nephritis, not specified as acute or chronic (principal); F12.90 Cannabis use, unspecified, uncomplicated; Z88.2 Allergy status to sulfonamides; Z88.1 Allergy status to other antibiotic agents
CPT/HCPCS: 36415; 80053; 83690; 85025; 81001; 87086; 74177; 99284; 96365; 96375; 96361; J1956; J1885; Q9967